=== PATIENT | female | born 1940 | race African-American/Black ===

== ENCOUNTER 2017-03-07 16:11 | Emergency (ER) | payer MEDICARE ==
[~2017-03-07] VITALS: Ht 177.8 cm; Wt 100.0 kg
[2017-03-07 20:39] VITALS: BP 142/92
[2017-03-07] MEDS ORDERED: ACETAMINOPHEN 325MG TABLET PO ONE (22:15)
== END 2017-03-07 23:34 | disposition home or self-care (01) ==
LOC: ER 21:46
DX: S92.511A Displaced fracture of proximal phalanx of right lesser toe(s), initial encounter for closed fracture (principal); F03.90 Unspecified dementia, unspecified severity, without behavioral disturbance, psychotic disturbance, mood disturbance, and anxiety; X58.XXXA Exposure to other specified factors, initial encounter; Y93.89 Activity, other specified; Y92.89 Other specified places as the place of occurrence of the external cause; Y99.8 Other external cause status
CPT/HCPCS: 73630; 99284